=== PATIENT | male | born 1960 | race Caucasian/White ===

== ENCOUNTER 2017-06-29 16:43 | Emergency (ER) | payer SELFPAY ==
[2017-06-29] MEDS ORDERED: HYDROcodone/Acetaminophen 5/325 mg Tablet ONE (17:09)
[2017-06-29] MEDS ORDERED: Dexamethasone 4 MG TAB ONE (17:10)
[2017-06-29] MEDS ORDERED: Ketorolac Tromethamine 30 MG/ML VIAL ONE (17:10)
[2017-06-29] MEDS ORDERED: Acetaminophen 325 MG TAB ONE (17:10)
== END 2017-06-29 17:22 | disposition home or self-care (01) ==
LOC: MADERS 16:43
DX: M19.031 Primary osteoarthritis, right wrist (principal); M19.041 Primary osteoarthritis, right hand; J44.9 Chronic obstructive pulmonary disease, unspecified; Z87.891 Personal history of nicotine dependence
CPT/HCPCS: 96372; J1885; J8540

== ENCOUNTER 2019-06-12 17:19 | Emergency (ER) | payer SELFPAY ==
[2019-06-12] MEDS ORDERED: Meclizine HCl 25 MG TAB ONE (17:43)
--- NOTE | 2019-06-12 18:00 | CT ---
Head CT without contrast 06/12/2019: HISTORY: Dizziness TECHNIQUE: Axial CT imaging at 5 mm intervals from vertex through skull base without contrast FINDINGS: Imaged paranasal sinuses/mastoid air cells well-aerated. No displaced calvarial fracture. N o intracranial hemorrhage, midline shift, mass effect, or ventricular enlargement. There is mild atherosclerotic calcification involving the cavernous carotid arteries. IMPRESSION: No acute findings.
== END 2019-06-12 18:20 | disposition home or self-care (01) ==
LOC: MADERS 17:19
DX: R42 Dizziness and giddiness (principal); I10 Essential (primary) hypertension; J44.9 Chronic obstructive pulmonary disease, unspecified; Z87.891 Personal history of nicotine dependence
CPT/HCPCS: 70450; J8597

== ENCOUNTER 2020-01-31 10:06 | Emergency (ER) | payer BC, SELFPAY ==
[2020-01-31] MEDS ORDERED: predniSONE 20 MG TAB ONE (10:37)
== END 2020-01-31 10:43 | disposition home or self-care (01) ==
LOC: MADERS 10:06
DX: G57.11 Meralgia paresthetica, right lower limb (principal); J44.9 Chronic obstructive pulmonary disease, unspecified; Z87.891 Personal history of nicotine dependence
CPT/HCPCS: 99283; J7512